=== PATIENT | female | born 1965 | race Caucasian/White ===

== ENCOUNTER → 2022-01-19 | Outpatient (CLI) | payer OTHER ==
[~2022-01-19] MED LIST: NAPR220C23 PO
[2022-01-19 15:36] VITALS: BP 142/78
== END ==
LOC: M WHCPRO 12:46
PROVIDERS: ATTEND Surgery
DX: R92.1 Mammographic calcification found on diagnostic imaging of breast (principal); N63.12 Unspecified lump in the right breast, upper inner quadrant; D05.82 Other specified type of carcinoma in situ of left breast

== ENCOUNTER → 2022-01-27 | Outpatient (CLI) | payer OTHER | LOC: M WHCPRO 11:31 | PROVIDERS: ATTEND Surgery | DX: R92.8 Other abnormal and inconclusive findings on diagnostic imaging of breast (principal) | CPT/HCPCS: 77065; G0279 ==

== ENCOUNTER → 2022-01-28 | Outpatient (CLI) | payer OTHER ==
[2022-01-28 12:04] VITALS: BP 156/94
== END ==
LOC: M WHCPRO 10:46
PROVIDERS: ATTEND Surgery
DX: N63.12 Unspecified lump in the right breast, upper inner quadrant (principal)

== ENCOUNTER → 2022-02-20 | Outpatient (CLI) | payer MEDICAID, OTHER ==
[~2022-02-20] MED LIST changes: +BACI1TAB4 PO; +CVS2500C PO; +CYAN500T14 PO; +FISH1CHW2 PO; +LATA0.0015; +NAPR-832 PO; +OMEGCAP9 PO; +PROB250C PO; +TRAZ-252 PO; +XALA0.007 OU
== END ==
LOC: M LABSMTC 12:01
PROVIDERS: ATTEND Anesthesiology
DX: Z01.812 Encounter for preprocedural laboratory examination (principal); Z20.822 Contact with and (suspected) exposure to COVID-19

== ENCOUNTER 2022-02-22 06:14 | Observation (INO) | payer MEDICAID, OTHER ==
[2022-02-22] VITALS (8 sets, daily range): BP systolic 112–132; BP diastolic 74–81; O2SAT 96
[~2022-02-22] VITALS: Ht 157.5 cm; Wt 83.5 kg
[~2022-02-22 06:14] MED LIST changes: -BACI1TAB4 PO; -CVS2500C PO; -CYAN500T14 PO; -FISH1CHW2 PO; -NAPR-832 PO; -OMEGCAP9 PO; -PROB250C PO; -XALA0.007 OU; +ceFAZolin SOD 2 GM in IV 1 EA IV ONE
[2022-02-22] MEDS ORDERED: HEPARIN SOD (PORCINE) 5000UNITS/ML 1ML VIAL/SYRINGE SQ ONE (06:15)
[2022-02-22] MEDS ORDERED: NS 1,000 ML IV SCH (06:15)
[2022-02-22] MEDS ORDERED: PROB250C PO (06:52)
[2022-02-22] MEDS ORDERED: CYAN500T14 PO (06:52)
[2022-02-22] MEDS ORDERED: OMEGCAP9 PO (06:52)
[2022-02-22] MEDS ORDERED: LIDOCAINE 2% 100MG/5ML SDV (FOR ANES.) As Ordered ONE (07:13)
[2022-02-22] MEDS ORDERED: MIDAZOLAM INJ 2MG/2ML VIAL (J2250 PER 1MG) As Ordered ONE (07:13)
[2022-02-22] MEDS ORDERED: ROCURONIUM BROMIDE 50 MG/5 ML VIAL As Ordered ONE ×2 (07:13→09:27)
[2022-02-22] MEDS ORDERED: fentaNYL 250 MCG/5 ML INJECTION As Ordered ONE (07:13)
[2022-02-22] MEDS ORDERED: propofoL 200 MG/20 ML VIAL As Ordered ONE (07:13)
[2022-02-22] MEDS ORDERED: BUPIVACAINE HCL 0.25% 10ML VIAL As Ordered ONE ×2 (07:20→09:44)
[2022-02-22] MEDS ORDERED: GENTAMICIN SULF 80MG/2ML VIAL As Ordered ONE (07:20)
[2022-02-22] MEDS ORDERED: BUPIVACAINE LIPOSOME/PF 1.3% 20ML VIAL (13.3MG/ML)(EXPAREL) As Ordered ONE ×2 (07:20→09:45)
[2022-02-22] MEDS ORDERED: BUPIVACAINE HCL 0.25% 30ML VIAL As Ordered ONE (07:25)
[2022-02-22] MEDS ORDERED: LR 1,000 ML IV SCH ×2 (07:25→12:40)
[2022-02-22] MEDS ORDERED: SCOPOLAMINE 1MG TRANSDERMAL PATCH TOP ONE (07:25)
[2022-02-22] MEDS ORDERED: LIDOCAINE 1% SDV 30ML VIAL As Ordered ONE (07:25)
[2022-02-22] MEDS ORDERED: NAPR-832 PO (07:31)
[2022-02-22] MEDS ORDERED: BACI1TAB4 PO (07:31)
[2022-02-22] MEDS ORDERED: FISH1CHW2 PO (07:31)
[2022-02-22] MEDS ORDERED: XALA0.007 OU (07:31)
[2022-02-22] MEDS ORDERED: CVS2500C PO (07:31)
[2022-02-22] MEDS ORDERED: HOME MED LIST COMPLETE! XX SCH (07:35)
[2022-02-22] MEDS ORDERED: PHENYLephrine 500MCG 5ML (100MCG/ML) SYRINGE As Ordered ONE ×2 (08:36→10:59)
[2022-02-22] MEDS ORDERED: ePHEDrine SULFATE 25 MG/5 ML(5MG/ML) SYRINGE As Ordered ONE (08:38)
[2022-02-22] MEDS ORDERED: dexameTHASONE 4 MG/ML 1ML VIAL (J1100 PER 1MG) As Ordered ONE (08:38)
[2022-02-22] MEDS ORDERED: ONDANSETRON 4MG 2ML VIAL As Ordered ONE (08:52)
[2022-02-22] MEDS ORDERED: SUGAMMADEX SODIUM 500 MG/5 ML VIAL (BRIDION) As Ordered ONE (08:52)
[2022-02-22] MEDS ORDERED: METOCLOPRAMIDE INJ 10MG/2ML VIAL (J2765 PER 1) As Ordered ONE (08:52)
[2022-02-22] MEDS ORDERED: HYDROmorphone HCL 2MG/ML 1ML VIAL As Ordered ONE (08:52)
[2022-02-22] MEDS ORDERED: ACETAMINOPHEN 1000MG 100ML IV BTL (OFIRMEV) (J0131 PER 10MG) As Ordered ONE (08:53)
[2022-02-22] MEDS ORDERED: GLYCOPYRROLATE INJ 0.2 MG/ML 2 ML VIAL As Ordered ONE (09:16)
[2022-02-22] MEDS ORDERED: ONDANSETRON 4MG 2ML VIAL IV PRN ×2 (12:40→13:05)
[2022-02-22] MEDS ORDERED: METOCLOPRAMIDE INJ 10MG/2ML VIAL (J2765 PER 1) IV PRN (12:40)
[2022-02-22] MEDS ORDERED: fentaNYL 100 MCG/2 ML INJECTION IV PRN (12:40)
[2022-02-22] MEDS ORDERED: HYDROMORPHONE HCL 0.5 MG/ 0.5 ML SYRINGE (J1170 PER 1) IV PRN (12:40)
[2022-02-22] MEDS ORDERED: traMADol 50 MG TAB PO PRN (13:05)
[2022-02-22] MEDS ORDERED: PERCOCET 5MG/325MG TAB PO PRN (13:05)
[2022-02-22] MEDS: LR 1,000 ML IV SCH (14:07)
[2022-02-22] MEDS ORDERED: ceFAZolin SOD 2 GM in IV 1 EA IV ONE (16:00)
[2022-02-22] MEDS: ACETAMINOPHEN TAB 650MG DOSE (2X325MG) PO PRN ×2 (18:23→23:58)
[2022-02-22] MEDS: PERCOCET 5MG/325MG TAB PO PRN (19:57)
[2022-02-22] MEDS ORDERED: LATANOPROST 0.005% OPHTH SOLN 2.5 ML OU SCH (21:00)
[2022-02-23] MEDS: LR 1,000 ML IV SCH (00:01)
[2022-02-23 02:00] VITALS: BP 113/79
[2022-02-23] MEDS: PERCOCET 5MG/325MG TAB PO PRN ×2 (04:57→11:33)
[2022-02-23 05:44] VITALS: BP 116/80
[2022-02-23] MEDS ORDERED: PERCOCET PO (10:32)
[2022-03-03] MEDS ORDERED: [UNRECOGNIZED DRUG - CODE] PO (13:14)
== END 2022-02-23 12:30 | disposition home or self-care (01) ==
LOC: M SDC 06:14 → M MS5PR 06:15 → M SDC 02-23 12:30 → M MS5PR 02-23 12:30
PROVIDERS: ADMIT Surgery; ATTEND Surgery
DX: C50.912 Malignant neoplasm of unspecified site of left female breast (principal); D05.12 Intraductal carcinoma in situ of left breast; N60.21 Fibroadenosis of right breast; Z79.1 Long term (current) use of non-steroidal anti-inflammatories (NSAID); Z79.899 Other long term (current) drug therapy; F12.10 Cannabis abuse, uncomplicated; Z17.0 Estrogen receptor positive status [ER+]; F41.9 Anxiety disorder, unspecified
CPT/HCPCS: 19285; 19286; 19301; 19316; 19318; 36415; 76942; 81025; 86850; 86900; 86901; 88305; 88307; 96361; 96365; A4648; C9290; J0131; J0690; J1100; J1170; J1580; J1644; J2250; J2370; J2405; J2765; J3010

== ENCOUNTER 2022-03-14 10:08 | Outpatient (RCR) | payer OTHER ==
[~2022-03-14 10:08] MED LIST changes: +BACI1TAB4 PO; +CVS2500C PO; +CYAN500T14 PO; +FISH1CHW2 PO; +NAPR-832 PO; +OMEGCAP9 PO; +PERCOCET PO; +PROB250C PO; +XALA0.007 OU; +[UNRECOGNIZED DRUG - CODE] PO; -ceFAZolin SOD 2 GM in IV 1 EA IV ONE
[2022-03-14] MEDS ORDERED: AMIT10TA7 (11:32)
[2022-03-14] MEDS ORDERED: ANAS1TAB2 PO (12:13)
== END 2022-03-21 ==
LOC: M ONCR 10:08
PROVIDERS: ATTEND General Practice
DX: D05.12 Intraductal carcinoma in situ of left breast (principal)

== ENCOUNTER → 2022-03-28 | Outpatient (CLI) | payer OTHER ==
[~2022-03-28] MED LIST changes: +AMIT10TA7; +ANAS1TAB2 PO
== END ==
LOC: M WHC 10:03
PROVIDERS: ATTEND Specialist
DX: D05.12 Intraductal carcinoma in situ of left breast (principal); M85.88 Other specified disorders of bone density and structure, other site

== ENCOUNTER → 2022-06-21 | Outpatient (RCR) | payer OTHER ==
[~2022-06-21] MED LIST changes: +FAMO1TAB11 PO
== END ==
LOC: M ONCR 06-02 10:34
PROVIDERS: ATTEND General Practice
DX: D05.12 Intraductal carcinoma in situ of left breast (principal)

== ENCOUNTER 2022-07-05 09:37 | Outpatient (RCR) | payer OTHER | END 2022-07-19 | LOC: M ONCR 09:37 | PROVIDERS: ATTEND General Practice | DX: D05.12 Intraductal carcinoma in situ of left breast (principal) ==

== ENCOUNTER → 2022-12-26 | Outpatient (CLI) | payer OTHER ==
[~2022-12-26] MED LIST changes: +GABA-282
== END ==
LOC: M WHC 12:30
PROVIDERS: ATTEND Nurse Practitioner Women's Health
DX: D05.12 Intraductal carcinoma in situ of left breast (principal)
CPT/HCPCS: 77066; G0279

== ENCOUNTER → 2023-01-03 | Outpatient (CLI) | payer OTHER | LOC: M ONCR 09:53 | PROVIDERS: ATTEND General Practice | DX: D05.12 Intraductal carcinoma in situ of left breast (principal); F12.90 Cannabis use, unspecified, uncomplicated; Z71.2 Person consulting for explanation of examination or test findings; Z79.811 Long term (current) use of aromatase inhibitors; Z87.891 Personal history of nicotine dependence; Z79.899 Other long term (current) drug therapy; Z92.3 Personal history of irradiation ==

== ENCOUNTER → 2023-02-01 | Outpatient (REF) | LOC: M PLAIMG 15:16 | PROVIDERS: ATTEND Internal Medicine | DX: M25.572 Pain in left ankle and joints of left foot (principal) ==

== ENCOUNTER → 2023-03-28 | Outpatient (REF) | payer OTHER | LOC: M SFHCWAGY 13:16 | PROVIDERS: ATTEND Nurse Practitioner Women's Health | DX: Z12.4 Encounter for screening for malignant neoplasm of cervix (principal); R85.610 Atypical squamous cells of undetermined significance on cytologic smear of anus (ASC-US) ==

== ENCOUNTER → 2023-04-04 | Outpatient (CLI) | payer OTHER | LOC: M RAD 13:38 | PROVIDERS: ATTEND Internal Medicine Medical Oncology | DX: R33.9 Retention of urine, unspecified (principal); Z85.3 Personal history of malignant neoplasm of breast ==

== ENCOUNTER → 2023-06-27 | Outpatient (CLI) | payer OTHER ==
[~2023-06-27] MED LIST changes: +AMLO1TAB25; +TAMO20TA8 PO
== END ==
LOC: M WHC 08:47
PROVIDERS: ATTEND Nurse Practitioner Women's Health
DX: R92.8 Other abnormal and inconclusive findings on diagnostic imaging of breast (principal); Z85.3 Personal history of malignant neoplasm of breast

== ENCOUNTER → 2023-07-06 | Outpatient (CLI) | payer OTHER ==
[~2023-07-06] MED LIST changes: +FAMO20TA PO
== END ==
LOC: M ONCR 09:58
PROVIDERS: ATTEND General Practice
DX: Z08 Encounter for follow-up examination after completed treatment for malignant neoplasm (principal); Z85.3 Personal history of malignant neoplasm of breast; Z79.810 Long term (current) use of selective estrogen receptor modulators (SERMs); Z71.2 Person consulting for explanation of examination or test findings; Z87.891 Personal history of nicotine dependence; Z79.899 Other long term (current) drug therapy; Z92.3 Personal history of irradiation; Z98.890 Other specified postprocedural states

== ENCOUNTER → 2024-04-09 | Outpatient (CLI) | payer OTHER ==
[~2024-04-09] MED LIST changes: +GABA-1172; -GABA-282; +LOSA100T46 PO
== END ==
LOC: M WHC 11:55
PROVIDERS: ATTEND Internal Medicine Medical Oncology
DX: Z12.31 Encounter for screening mammogram for malignant neoplasm of breast (principal); Z85.3 Personal history of malignant neoplasm of breast
CPT/HCPCS: 77066; G0279

== ENCOUNTER → 2024-04-22 | Outpatient (CLI) | payer MEDICARE, OTHER | LOC: M RAD 12:50 | PROVIDERS: ATTEND Internal Medicine Medical Oncology | DX: Z87.891 Personal history of nicotine dependence (principal) ==

== ENCOUNTER → 2024-09-23 | Outpatient (REF) | payer BC, MEDICARE, OTHER ==
[2024-09-25 14:32] LABS: HPV APTIMA Not Detected (Not Detected)
== END ==
LOC: M SFHCWAGY 18:13
PROVIDERS: ATTEND Obstetrics & Gynecology
DX: R87.610 Atypical squamous cells of undetermined significance on cytologic smear of cervix (ASC-US) (principal)
CPT/HCPCS: 87624; G0123

== ENCOUNTER → 2024-09-25 | Outpatient (CLI) | payer BC, MEDICARE, OTHER | LOC: M WHC 11:05 | PROVIDERS: ATTEND Obstetrics & Gynecology | DX: Z85.3 Personal history of malignant neoplasm of breast (principal); Z53.9 Procedure and treatment not carried out, unspecified reason ==

== ENCOUNTER → 2025-04-15 | Outpatient (CLI) | payer MEDICARE, OTHER ==
[~2025-04-15] MED LIST changes: +AMIT10TA11; -AMIT10TA7
== END ==
LOC: M WHC 12:26
DX: Z85.3 Personal history of malignant neoplasm of breast (principal); R92.323 Mammographic fibroglandular density, bilateral breasts

== ENCOUNTER 2025-05-08 13:35 | Emergency (ER) | payer OTHER ==
[~2025-05-08] VITALS: Ht 160 cm; Wt 95.5 kg
[2025-05-08] MEDS ORDERED: HYDR12.55 (13:53)
[2025-05-08] MEDS ORDERED: CYCL-707 (13:53)
[2025-05-08] MEDS ORDERED: IBUP600T42 PO (16:53)
[2025-05-08] MEDS ORDERED: AMOX875T2 PO (16:53)
[2025-05-08 16:58] VITALS: BP 127/95; TEMP 98.7; O2SAT 96
== END 2025-05-08 17:00 | disposition home or self-care (01) ==
LOC: M ED 16:35
DX: K08.89 Other specified disorders of teeth and supporting structures (principal); K02.9 Dental caries, unspecified; Z79.2 Long term (current) use of antibiotics; Z79.899 Other long term (current) drug therapy; Z79.1 Long term (current) use of non-steroidal anti-inflammatories (NSAID)